=== PATIENT | male | born 1945 | race Caucasian/White ===

== ENCOUNTER 2017-07-24 17:49 | Emergency (ER) | payer MEDICARE, OTHER ==
[~2017-07-24] VITALS: Ht 175.3 cm; Wt 72.6 kg
[~2017-07-24 17:49] MED LIST: ACETAMINOPHEN &1 TA1 PO; ACETAMINOPHEN-H1 TA1 PO; ALBUTEROL2.5 MG/NEB IH; ALBUTEROL2.5 MG/NEB IN; AMARYL 4MG. TAB4 MG PO; DELTASONE5 MG PO; DEXAMETHASONE4 MG PO; ELIQUIS5 MG PO; HYDROCODONE/ACE1 TA5 PO; KEFLEX 250250 MG/5 M PO; KEFLEX 500MG.500 MG PO; LIPITOR10 MG PO; LISINOPRIL 5MG T5 MG NG; LISINOPRIL 5MG T5 MG PO; METFORMIN1000 MG PO; NORCO 325 MG-101 TAB PO; PRAVASTATIN 20M20 MG PO; PRAVASTATIN SOD80 MG PO; PREDNISONE 20MG20 MG PO; TESSALON PERLE100 MG PO; ZITHROMAX Z-PA250 M1 PO
--- OUTSIDE RECORDS SUMMARY | 2017-07-24 17:57 | External Medical Summary Rpt | CCD ---
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
--- OUTSIDE RECORDS SUMMARY | 2017-07-24 17:57 | External Medical Summary Rpt | CCD ---
Author Author , EMMANUELLE HANDLEY Address Unknown Phone [email or web address] Purpose Continuity of Care Document - 12-31-2016 [...]
--- OUTSIDE RECORDS SUMMARY | 2017-07-24 17:58 | External Medical Summary Rpt | CCD ---
Author Author , EMMANUELLE HANDLEY Address Unknown Phone [email or web address] Immunization Name Date Rout CVX Reac Dose Comm Prov Is Faci e tion ent ider Refu lity Give sed n Infl 10-1 Intr 0.5 Hist PD20 No PD20 uenz 8-20 amus mL oric 255 255 a 17 cula al Quad r Info rmat W/Pr ion es - Sour ce Unsp ecif ied
--- OUTSIDE RECORDS SUMMARY | 2017-07-24 17:58 | External Medical Summary Rpt | CCD ---
Author Author [employer] Organization [employer] Address Unknown Phone Unavailable Purpose Continuity of Care Document - through 2016
--- OUTSIDE RECORDS SUMMARY | 2017-07-24 17:58 | External Medical Summary Rpt ---
Author Author EMMANUELLE Casey, EMMANUELLE Csaey Organization [employer] Address Unknown Phone Unavailable
--- OUTSIDE RECORDS SUMMARY | 2017-07-24 17:58 | External Medical Summary Rpt ---
Author Author EMMANUELLE Casey, EMMANUELLE Casey Organization [employer] Address Unknown Phone Unavailable
--- OUTSIDE RECORDS SUMMARY | 2017-07-24 17:58 | External Medical Summary Rpt | CCD ---
Author Author , EMMANUELLE HANDLEY Address Unknown Phone Immunization Name Date Rout CVX Reac Dose Comm Prov Is Faci e tion ent ider Refu lity Give sed n Infl 10-1 Intr 0.5 Hist PD20 No PD20 uenz 8-20 amus mL oric 255 255 a 17 cula al Quad r Info rmat W/Pr ion es - Sour ce Unsp ecif ied
[2017-07-24] MEDS ORDERED: BLOOD GLUCOSE1 EAC3 XX (18:28)
--- NOTE | 2017-07-24 18:36 | Urgent Treatment Center Report ---
History of Present Issue Date/Time Seen by Provider 07/24/17 1823 Visit Reason Pt arrived:Walked Presenting Problem:PT ADVISES BLOOD SUGAR OF 519 AT 1700 Location if Accident: Onset of symptoms date/time:/ or onset unknown for:MEDICAL HX UNKNOWN Have you (or family members/close friends) recently traveled outside the [place]? N If Yes, where/when: Have you had exposure to infectious disease within the past month? TB? Other? Specify: Patient state that he checked his blood sugar around 530 states that it was 519 so he came in to get checked because he knew that was too high State that he does not feel like it was that high but he did not have another machine to check it with and see if his machine was accurate ALLERGIES Coded Allergies: No Known Allergies (05/16/16) Home Medications Active Scripts HYDROCODONE/ACETAMINOPHEN (Lortab 10-325 (generic) Tablet) 1 TAB PO QID PRN PAIN #120 TAB Prov: 04/27/16 ALBUTEROL (Albuterol 0.083% Neb) 2.5 MG IN TID #30 VIAL Prov: 05/25/15 ALBUTEROL (Albuterol 0.083% Neb) 3 ML IH QID #120 NEB Prov: 05/25/15 BENZONATATE (Benzonatate) 100 MG PO TID #15 CAP Prov: 10/16/16 Prednisone (Prednisone 20MG) 20 MG PO BID #10 TAB Prov: 10/16/16 CEPHALEXIN (Keflex 500MG Capsule) 500 MG PO Q8H #21 CAP Prov: 10/16/16 Reported Medications LISINOPRIL (Lisinopril) 5 MG NG DAILY #90 METFORMIN HCL (Metformin) 1,000 MG PO BID Apixaban (Eliquis) 5 MG PO BID History Medical History General CAD? No Angina: No NV: No Hypertension? Yes Hyperlipidemia? Yes CHF? No DVT? No PE? No COPD? Yes Asthma? No Anemia? No GERD? No Gastric ulcers? No GI Bleed? No Hernia? Yes Thyroid Problems? No Hypothyroidism? No CVA? No Seizures? No Diabetes? Yes Insulin Dependent: No Insulin Pump: No Home FSBS? Yes Renal Insuffiency? No UTI? No Stones? No BPH? No GB Disease: No Nephritic Syndrome? No Asplenia? No Hepatitis? No Sickle Cell Disease? No Arthritis? No Migraines? No Cataracts? No Glaucoma? No MRSA? No HIV? No TB? No Anxiety? No Depression? No Cancer? Yes Site: FACE, THROAT More? No Immunization HX DT/Tetanus > 10 Years Ago Flu RECD IN [place] Pneumonia Never Had Surgical Hx Previous Surgery?Y NECK SURGERY COLON RESECTION (TRAUMA) UMBILICAL HERNIA REPAIR LEFT ARM FX L KNEE TRACH REMOVAL OF VOICE BOX REMOVAL OF LARYNX Family History Family HX Diabetes No CAD Yes Hypertension No Hyperlipidemia No Cancer No TB No Social History Smoking Hx Smoker: Never Smoker Tobacco: No Packs/day < 1 Pack Alcohol Alcohol: No Review of Systems All Other Systems Reviewed and Negative Physical Exam Vital Signs Vital Signs Date Time Temp Pulse Resp B/P Pulse O2 O2 Flow FiO2 Ox Delivery Rate 07/24 1811 98.1 65 20 126/73 96 General Appearance normal appearance, WD/WN, no apparent distress Respiratory Status Yes: trachea midline, chest symmetrical, non tender chest. No: respiratory distress. Cardiovascular normal exam Neurologic alert, normal exam, oriented x 3 Comments FSBS rechecked x 2 and same result 183 patient informed that his machine either was not working correctly or needed checked and recalobrated. Patient verbalized understanding and was written for new machine and advised to continue to use it as he was instructed with the other one Medical Decision Making LABS/Meds/Orders Pt receiving controlled substance in ED? No Results/Orders Laboratory Tests 07/24/17 180: POC Glucose 183 H Orders Procedure Date/time Status FINGERSTICK BLOOD SUGAR 07/24 1809 Complete Departure Departure Time of Disposition 1828 Disposition DC Home or Self Care(routine) Clinical Impression Primary Impression: Encounter for glucometer instruction Condition STABLE Patient Instructions Blood Glucose Additional Instructions Follow up with family doctor Make sure to apple picker your new machine from pharmacy and watch blood sugar as previously directed REturn if needed Discharge Counseling Counseled pt/family regarding diagnosis, test results, home care, follow up needs Prescriptions Current Visit Scripts Blood-Glucose Meter (BLOOD GLUCOSE METER) 1 EACH XX UD #1 DEV Ref 2 Use as previously directed at 1836
[2017-07-24 18:38] VITALS: BP 126/73
== END 2017-07-24 18:38 | disposition home or self-care (01) ==
LOC: UTC 17:49
DX: E11.65 Type 2 diabetes mellitus with hyperglycemia (principal); Z79.84 Long term (current) use of oral hypoglycemic drugs; I10 Essential (primary) hypertension; E78.5 Hyperlipidemia, unspecified